=== PATIENT | female | born 1985 | race Caucasian/White ===

== ENCOUNTER 2019-10-26 14:31 | Emergency (ER) | payer OTHER ==
[2019-10-27 12:00] LABS: SARS-CoV-2 MS2 Positive; SARS-CoV-2 N Gene Negative; SARS-CoV-2 S Gene Negative; SARS-CoV-2 by NAA Not Detected (NotDetected); SARS-CoV-2 orf1ab Negative
== END 2019-10-26 14:50 | disposition home or self-care (01) ==
LOC: ERS 14:31
DX: Z20.828 Contact with and (suspected) exposure to other viral communicable diseases (principal)
CPT/HCPCS: 87635; 99283; U0003

== ENCOUNTER 2019-10-30 09:46 | Emergency (ER) | payer OTHER ==
[2019-10-30 17:00] LABS: SARS-CoV-2 MS2 Positive; SARS-CoV-2 N Gene Positive; SARS-CoV-2 S Gene Positive; SARS-CoV-2 by NAA DETECTED (NotDetected); SARS-CoV-2 orf1ab Positive
== END 2019-10-30 10:00 | disposition home or self-care (01) ==
LOC: ERS 09:46
DX: U07.1 COVID-19 (principal)
CPT/HCPCS: 87635; 99283; U0003